=== PATIENT | female | born 1985 ===

== ENCOUNTER → 2024-02-28 | Outpatient (CLI) | payer SELFPAY ==
[2024-03-10 11:46] LABS: HPV HIGH RISK BY TMA Not Detected; HPV SOURCE Cervical
== END ==
LOC: LAB SHORT 10:00 → LAB 10:00
PROVIDERS: Advanced Practice Midwife
DX: Z01.419 Encounter for gynecological examination (general) (routine) without abnormal findings (principal)
CPT/HCPCS: 87624; G0123